=== PATIENT | male | born 1980 ===

== ENCOUNTER 2022-03-03 08:42 | Outpatient (CLI) | payer OTHER, SELFPAY ==
[2022-03-03 20:15] LABS: Iron 90 ug/dL (49-181)
[2022-03-03 20:20] LABS: Alanine Aminotransferase 64 U/L (6-50); Albumin Level 5.1 g/dL (3.5-5.1); Alkaline Phosphatase 68 U/L (38-126); Aspartate Amino Transferase 69 U/L (17-59); Bilirubin,Total 0.5 mg/dL (0.2-1.3)
[2022-03-03 20:30] LABS: Percent Iron Saturation 27 % (20-50)
== END 2022-03-03 08:43 | disposition home or self-care (01) ==
LOC: ANHGOSHLAB 08:44
PROVIDERS: PCP Internal Medicine; Visit Provider Internal Medicine
DX: R74.8 Abnormal levels of other serum enzymes (principal)
CPT/HCPCS: 36415; 80076; 82728; 83540; 83550

== ENCOUNTER → 2022-03-07 09:51 | Outpatient (CLI) | payer OTHER, SELFPAY ==
--- NOTE | ~2022-03-07 | US_ITS ---
US abdomen limited INDICATION: Elevated liver enzymes PROCEDURE: Realtime right upper abdominal ultrasound. COMPARISON: No prior studies for comparison. FINDINGS: The pancreas is normal without focal mass or pancreatic ductal dilation. Liver echotexture is diffusely increased, consistent with fatty infiltration. There is normal directional flow in the portal vein. Gallbladder contains multiple polyps, largest measuring 6 mm. Common bile duct measures 3 mm. No so nographic Orellana's sign. IMPRESSION: 1: Hepatic steatosis. 2: Gallbladder polyps, largest measuring 6 mm. Reviewed, dictated and finalized at location A. [facility]
== END ==
PROVIDERS: PCP Internal Medicine; Visit Provider Internal Medicine
DX: R74.8 Abnormal levels of other serum enzymes (principal); K76.0 Fatty (change of) liver, not elsewhere classified; K82.4 Cholesterolosis of gallbladder
CPT/HCPCS: 76705